=== PATIENT | female | born 1995 | race Caucasian/White ===

== ENCOUNTER 2021-01-12 20:34 | Inpatient (IN) | payer OTHER ==
[~2021-01-12] VITALS: Ht 162.6 cm; Wt 106.8 kg
[2021-01-12 21:32] LABS: MICROSCOPIC INDICATED
[2021-01-12 21:39] LABS: BASOPHILS % (AUTO) 0 % (0-1); EOSINOPHILS % (AUTO) 1 % (1-7); LYMPHOCYTES % (AUTO) 16 % (22-44); MEAN CORPUSCULAR HEMOGLOBIN 30.2 pg (27.0-34.8); MEAN CORPUSCULAR HGB CONC 32.6 g/dL (32.4-35.8); MEAN PLATELET VOLUME 9.4 fL (7.4-10.4); MONOCYTES % (AUTO) 4 % (2-9); NEUTROPHILS % (AUTO) 79 % (42-75); PLATELET COUNT 215 x10^3/uL (130-400); RED BLOOD COUNT 4.03 x10^6/uL (3.82-5.3); RED CELL DISTRIBUTION WIDTH 15.2 % (9.6-15.2)
[2021-01-12 21:43] LABS: ALANINE AMINOTRANSFERASE 20 U/L (12-78); ALBUMIN 2.4 g/dL (3.4-5.0); ANION GAP 13 mmol/L (5-15); CALCIUM 8.6 mg/dL (8.5-10.1); CHLORIDE 110 mmol/L (98-107); CREATININE 0.79 mg/dL (0.55-1.02)
[2021-01-12 21:45] LABS: ALKALINE PHOSPHATASE 226 U/L (45-117); BILIRUBIN,TOTAL 0.3 mg/dL (0.2-1.0); TOTAL PROTEIN 6.4 g/dL (6.4-8.2)
[2021-01-12 21:52] VITALS: BP 136/85
[2021-01-12 21:58] LABS: BILIRUBIN, DIRECT < 0.1 mg/dL (0.1-0.2)
[2021-01-12] MEDS ORDERED: SODIUM CITRATE/CITRIC ACID 30 ML UDC PO PRN (22:30)
[2021-01-12] MEDS ORDERED: CALCIUM CARBONATE 500 MG TAB.CHEW PO PRN (22:30)
[2021-01-12] MEDS: BUTALB/APAP/CAFFEINE 50MG/325MG/40MG PO PRN (22:50)
[2021-01-12] MEDS: INSULIN GLARGINE 100 UNITS/ML, PEN SQ-INSULIN SCH (23:01)
[2021-01-12] MEDS: BETAMETHASONE 6 MG/ML, 5ML IM SCH (23:07)
[2021-01-13] MEDS ORDERED: SERTRALINE 50MG TABLET PO ONE (00:30)
[2021-01-13] MEDS: LEVOTHYROXINE 100 MCG TABLET PO SCH (05:57)
[2021-01-13] MEDS: BUTALB/APAP/CAFFEINE 50MG/325MG/40MG PO PRN ×3 (07:34→21:44)
[2021-01-13] MEDS ORDERED: ONDANSETRON ODT 4 MG ONE (07:46)
[2021-01-13] MEDS ORDERED: DIPHENHYDRAMINE 50 MG/ML, 1ML IVPush PRN (08:00)
[2021-01-13] MEDS ORDERED: ONDANSETRON 2MG/ML, 2ML IVPush PRN (08:00)
[2021-01-13] MEDS: INSULIN LISPRO 100 UNITS/ML, PEN SQ-INSULIN SCH ×3 (08:09→18:47)
[2021-01-13 21:00] VITALS: BP 145/78
[2021-01-13] MEDS: INSULIN GLARGINE 100 UNITS/ML, PEN SQ-INSULIN SCH (21:33)
[2021-01-13] MEDS: SERTRALINE 50MG TABLET PO SCH (22:28)
[2021-01-13] MEDS: BETAMETHASONE 6 MG/ML, 5ML IM SCH (22:29)
[2021-01-14] MEDS: BUTALB/APAP/CAFFEINE 50MG/325MG/40MG PO PRN ×3 (01:46→14:05)
[2021-01-14 06:03] LABS: MEAN CORPUSCULAR HEMOGLOBIN 30.3 pg (27.0-34.8); MEAN CORPUSCULAR HGB CONC 32.9 g/dL (32.4-35.8); MEAN PLATELET VOLUME 9.6 fL (7.4-10.4); PLATELET COUNT 190 x10^3/uL (130-400); RED BLOOD COUNT 3.74 x10^6/uL (3.82-5.3); RED CELL DISTRIBUTION WIDTH 15.2 % (9.6-15.2)
[2021-01-14 06:09] LABS: ALANINE AMINOTRANSFERASE 16 U/L (12-78); ALBUMIN 2.2 g/dL (3.4-5.0); ANION GAP 11 mmol/L (5-15); CALCIUM 8.5 mg/dL (8.5-10.1); CHLORIDE 112 mmol/L (98-107); CREATININE 0.73 mg/dL (0.55-1.02)
[2021-01-14 06:11] LABS: ALKALINE PHOSPHATASE 196 U/L (45-117); BILIRUBIN,TOTAL 0.2 mg/dL (0.2-1.0); TOTAL PROTEIN 5.9 g/dL (6.4-8.2)
[2021-01-14] MEDS: INSULIN LISPRO 100 UNITS/ML, PEN SQ-INSULIN SCH ×3 (06:24→17:16)
[2021-01-14] MEDS: LEVOTHYROXINE 100 MCG TABLET PO SCH (06:25)
[2021-01-14 06:36] LABS: LYMPH#(MANUAL) 0.89 x10^3/uL (1-3.4); LYMPHS% (MANUAL) 5 % (22-44); MONOS#(MANUAL) 0.35 x10^3/uL (0.3-2.7); MONOS% (MANUAL) 2 % (2-9); SEG#(MANUAL) 15.05 x10^3/uL (1.8-6.8); SEGS% (MANUAL) 85 % (42-75)
[2021-01-14 06:37] LABS: <PLATELET ESTIMATE> ADEQUATE; <PLT MORPHOLOGY> NORMAL PLT MORPH; <RBC MORPHOLOGY> NORMAL; BAND#(MANUAL) 0.89 x10^3/uL; BANDS%(MANUAL) 5 % (0-7); METAMYELOCYTES# (MANUAL) 0.53 x10^3/uL (0-0); METAMYELOCYTES% (MANUAL) 3 % (0-1)
[2021-01-14] MEDS: ONDANSETRON 2MG/ML, 2ML IVPush PRN (07:30)
[2021-01-14] MEDS: SERTRALINE 50MG TABLET PO SCH (08:08)
[2021-01-14] MEDS ORDERED: PRENATAL VIT/IRON/FA 1 EACH TABLET PO SCH (09:00)
[2021-01-14] MEDS ORDERED: NEWBORN KIT ONE (09:24)
[2021-01-14] MEDS ORDERED: MISOPROSTOL 200 MCG TABLET ONE (09:24)
[2021-01-14] MEDS ORDERED: LIDOCAINE 1%, 20ML ONE (09:24)
[2021-01-14] MEDS ORDERED: MISOPROSTOL 25 MCG TABLET ONE (09:24)
[2021-01-14] MEDS ORDERED: MAGNESIUM SULF. PMX 20GM/500ML 500 ML IV ONE (09:25)
[2021-01-14] MEDS ORDERED: OXYTOCIN 30U/ 0.9% NaCL 500ML 500 ML ONE (09:25)
[2021-01-14] MEDS ORDERED: TERBUTALINE 1 MG/ML, 1ML IVPush PRN (10:00)
[2021-01-14] MEDS ORDERED: D5%-LACTATED RINGERS 1,000 ML IV SCH (10:00)
[2021-01-14] MEDS ORDERED: SODIUM CITRATE/CITRIC ACID 30 ML UDC PO PRN (10:00)
[2021-01-14] MEDS ORDERED: MISOPROSTOL 25 MCG TABLET VG PRN (10:00)
[2021-01-14] MEDS: LACTATED RINGERS 1,000 ML IV SCH ×2 (10:00→10:30)
[2021-01-14] MEDS ORDERED: OXYTOCIN 30U/ 0.9% NaCL 500ML 500 ML IV ONE (10:00)
[2021-01-14] MEDS ORDERED: FENTANYL PF 100 MCG/2ML IVPush PRN (10:00)
[2021-01-14] MEDS ORDERED: TERBUTALINE 1 MG/ML, 1ML SQ PRN (10:00)
[2021-01-14] MEDS ORDERED: ALUMINUM/MAG/SIMETHICONE 30 ML UDC PO PRN (10:00)
[2021-01-14] MEDS ORDERED: SODIUM CHLORIDE FLUSH 10ML SYR IVF PRN (10:00)
[2021-01-14] MEDS ORDERED: OXYTOCIN 30U/ 0.9% NaCL 500ML 500 ML IV PRN (10:00)
[2021-01-14] MEDS ORDERED: MAGNESIUM SULFATE PMX 4GM/100M 100 ML IVPB ONE (11:00)
[2021-01-14] MEDS: MAGNESIUM SULF. PMX 20GM/500ML 500 ML IV SCH ×2 (11:06→18:32)
[2021-01-14] MEDS ORDERED: ACETAMINOPHEN 500 MG TABLET ONE (20:18)
[2021-01-14] MEDS: ACETAMINOPHEN 325 MG TABLET PO PRN (20:23)
[2021-01-14] MEDS ORDERED: INSULIN LISPRO 100 UNITS/ML, PEN LOW DOSE SS SQ-INSULIN SCH (21:00)
[2021-01-14] MEDS: INSULIN GLARGINE 100 UNITS/ML, PEN SQ-INSULIN SCH (21:00)
[2021-01-15] MEDS ORDERED: DIPHENHYDRAMINE 25 MG CAPSULE ONE (00:11)
[2021-01-15] MEDS ORDERED: DIPHENHYDRAMINE 25 MG CAPSULE PO PRN (00:30)
[2021-01-15] MEDS: LEVOTHYROXINE 100 MCG TABLET PO SCH (05:51)
[2021-01-15] MEDS: ONDANSETRON 2MG/ML, 2ML IVPush PRN (07:16)
[2021-01-15 07:51] LABS: MEAN CORPUSCULAR HEMOGLOBIN 30.4 pg (27.0-34.8); MEAN CORPUSCULAR HGB CONC 32.8 g/dL (32.4-35.8); MEAN PLATELET VOLUME 9.9 fL (7.4-10.4); PLATELET COUNT 180 x10^3/uL (130-400); RED BLOOD COUNT 3.64 x10^6/uL (3.82-5.3); RED CELL DISTRIBUTION WIDTH 15.5 % (9.6-15.2)
[2021-01-15] MEDS ORDERED: NALOXONE 0.4 MG/ML, 1ML IVPush PRN (08:00)
[2021-01-15] MEDS ORDERED: FENTANYL/BUPIV./NS/PF 250 ML EPIDCONT SCH (08:00)
[2021-01-15] MEDS ORDERED: EPHEDRINE 50 MG/ML, 1ML IVPush PRN (08:00)
[2021-01-15] MEDS ORDERED: LACTATED RINGERS 1,000 ML IVBOLUS PRN (08:00)
[2021-01-15 08:10] LABS: <PLATELET ESTIMATE> ADEQUATE; <PLT MORPHOLOGY> NORMAL PLT MORPH; <RBC MORPHOLOGY> NORMAL; BAND#(MANUAL) 0.31 x10^3/uL; BANDS%(MANUAL) 2 % (0-7); LYMPH#(MANUAL) 1.86 x10^3/uL (1-3.4); LYMPHS% (MANUAL) 12 % (22-44); METAMYELOCYTES# (MANUAL) 0.16 x10^3/uL (0-0); METAMYELOCYTES% (MANUAL) 1 % (0-1); MONOS#(MANUAL) 0.47 x10^3/uL (0.3-2.7); MONOS% (MANUAL) 3 % (2-9); SEG#(MANUAL) 12.71 x10^3/uL (1.8-6.8); SEGS% (MANUAL) 82 % (42-75)
[2021-01-15] MEDS: BUTALB/APAP/CAFFEINE 50MG/325MG/40MG PO PRN ×2 (09:51→15:08)
[2021-01-15] MEDS: SERTRALINE 50MG TABLET PO SCH (10:00)
[2021-01-15] MEDS: MAGNESIUM SULF. PMX 20GM/500ML 500 ML IV SCH ×3 (15:09→22:44)
[2021-01-15] MEDS: LACTATED RINGERS 1,000 ML IV SCH ×2 (16:00→16:10)
[2021-01-15] MEDS ORDERED: BUPIVACAINE 0.25% ONE (16:25)
[2021-01-15] MEDS ORDERED: CALCIUM CARBONATE 500 MG TAB.CHEW ONE (20:50)
[2021-01-15] MEDS ORDERED: CALCIUM CARBONATE 500 MG TAB.CHEW PO PRN (21:00)
[2021-01-15] MEDS: INSULIN GLARGINE 100 UNITS/ML, PEN SQ-INSULIN SCH (21:00)
[2021-01-16] MEDS: MAGNESIUM SULF. PMX 20GM/500ML 500 ML IV SCH ×5 (03:00→23:00)
[2021-01-16] MEDS: LEVOTHYROXINE 100 MCG TABLET PO SCH (05:16)
[2021-01-16] MEDS: ONDANSETRON 2MG/ML, 2ML IVPush PRN (07:06)
[2021-01-16] MEDS ORDERED: CEFAZOLIN 2,000 MG in DEXTROSE 5% 50 ML IV SCH (10:30)
[2021-01-16] MEDS: SERTRALINE 50MG TABLET PO SCH (10:34)
[2021-01-16] MEDS: BUTALB/APAP/CAFFEINE 50MG/325MG/40MG PO PRN (10:35)
[2021-01-16] MEDS ORDERED: PROMETHAZINE 25 MG/ML, 1ML IM ONE (11:00)
[2021-01-16] MEDS ORDERED: PROMETHAZINE 25 MG/ML, 1ML ONE (11:02)
[2021-01-16] MEDS ORDERED: METOCLOPRAMIDE 5 MG/ML, 2ML ONE (18:16)
[2021-01-16] MEDS ORDERED: SODIUM CITRATE/CITRIC ACID 15 ML UDC ONE (18:16)
[2021-01-16] MEDS ORDERED: LIDOCAINE/MPF 2%-EPI 1:200K, 20 ML ONE (18:26)
[2021-01-16] MEDS ORDERED: AZITHROMYCIN 500 MG in SODIUM CHLORIDE 0.9% 250 ML IV ONE (18:30)
[2021-01-16] MEDS ORDERED: SODIUM CITRATE/CITRIC ACID 30 ML UDC PO ONE (18:30)
[2021-01-16] MEDS ORDERED: LACTATED RINGERS 1,000 ML IVBOLUS ONE (18:30)
[2021-01-16] MEDS ORDERED: METOCLOPRAMIDE 5 MG/ML, 2ML IV ONE (18:30)
[2021-01-16] MEDS ORDERED: KETOROLAC 30 MG/1 ML ONE (18:38)
[2021-01-16] MEDS ORDERED: OXYTOCIN 10 UNITS/ML, 1ML ONE (18:38)
[2021-01-16] MEDS ORDERED: DEXAMETHASONE 4 MG/ML, 1ML ONE (18:38)
[2021-01-16] MEDS ORDERED: morphine SULFATE/PF 0.5 MG/ML, 10ML ONE (18:38)
[2021-01-16] MEDS ORDERED: ONDANSETRON 2MG/ML, 2ML ONE (18:38)
[2021-01-16] MEDS ORDERED: TRANEXAMIC ACID 100 MG/ML, 10ML ONE (18:51)
[2021-01-16] MEDS: KETOROLAC 30 MG/1 ML IV SCH (19:00)
[2021-01-16] MEDS ORDERED: MORPHINE SULFATE 4 MG/ML, 1ML IVPush PRN (20:00)
[2021-01-16] MEDS ORDERED: LACTATED RINGERS 1,000 ML IV SCH (20:00)
[2021-01-16] MEDS: OXYTOCIN 30U/ 0.9% NaCL 500ML 500 ML IV SCH (20:00)
[2021-01-16] MEDS ORDERED: ONDANSETRON 2MG/ML, 2ML IV PRN (20:00)
[2021-01-16] MEDS ORDERED: SIMETHICONE 80 MG CHEW TAB PO PRN (20:00)
[2021-01-16] MEDS ORDERED: OXYcodone/APAP 5/325MG TABLET PO PRN ×2 (20:00)
[2021-01-16] MEDS ORDERED: morphine SULFATE 10 MG/ML, 1ML IM PRN (20:00)
[2021-01-16] MEDS ORDERED: MISOPROSTOL 200 MCG TABLET PR PRN (20:00)
[2021-01-16] MEDS: LACTATED RINGERS 1,000 ML IV SCH (20:00)
[2021-01-16] MEDS ORDERED: CALCIUM CARBONATE 500 MG TAB.CHEW PO PRN (20:00)
[2021-01-16 20:40] LABS: ALANINE AMINOTRANSFERASE 16 U/L (12-78); ALBUMIN 1.9 g/dL (3.4-5.0); ANION GAP 10 mmol/L (5-15); CHLORIDE 105 mmol/L (98-107); CREATININE 0.97 mg/dL (0.55-1.02)
[2021-01-16 20:41] LABS: BASOPHILS % (AUTO) 0 % (0-1); EOSINOPHILS % (AUTO) 0 % (1-7); LYMPHOCYTES % (AUTO) 7 % (22-44); MEAN CORPUSCULAR HEMOGLOBIN 30.4 pg (27.0-34.8); MEAN CORPUSCULAR HGB CONC 32.9 g/dL (32.4-35.8); MEAN PLATELET VOLUME 9.3 fL (7.4-10.4); MONOCYTES % (AUTO) 3 % (2-9); NEUTROPHILS % (AUTO) 90 % (42-75); PLATELET COUNT 167 x10^3/uL (130-400); RED BLOOD COUNT 3.68 x10^6/uL (3.82-5.3)
[2021-01-16 20:42] LABS: ALKALINE PHOSPHATASE 214 U/L (45-117); BILIRUBIN,TOTAL 0.3 mg/dL (0.2-1.0); TOTAL PROTEIN 5.6 g/dL (6.4-8.2)
[2021-01-16 22:00] VITALS: BP 151/91
[2021-01-17] MEDS: LACTATED RINGERS 1,000 ML IV SCH ×3 (04:00→20:00)
[2021-01-17] MEDS: KETOROLAC 30 MG/1 ML IV SCH ×4 (04:00→15:54)
[2021-01-17] MEDS: OXYTOCIN 30U/ 0.9% NaCL 500ML 500 ML IV SCH ×2 (06:00→16:00)
[2021-01-17 06:10] LABS: BASOPHILS % (AUTO) 0 % (0-1); EOSINOPHILS % (AUTO) 0 % (1-7); LYMPHOCYTES % (AUTO) 12 % (22-44); MEAN CORPUSCULAR HEMOGLOBIN 30.7 pg (27.0-34.8); MEAN CORPUSCULAR HGB CONC 33.7 g/dL (32.4-35.8); MEAN PLATELET VOLUME 9.5 fL (7.4-10.4); MONOCYTES % (AUTO) 4 % (2-9); NEUTROPHILS % (AUTO) 85 % (42-75); PLATELET COUNT 172 x10^3/uL (130-400); RED BLOOD COUNT 3.24 x10^6/uL (3.82-5.3); RED CELL DISTRIBUTION WIDTH 14.7 % (9.6-15.2)
[2021-01-17] MEDS: LEVOTHYROXINE 100 MCG TABLET PO SCH ×2 (08:13→08:15)
[2021-01-17] MEDS: PRENATAL VIT/IRON/FA 1 EACH TABLET PO SCH ×2 (08:13→08:15)
[2021-01-17] MEDS: SERTRALINE 50MG TABLET PO SCH (10:16)
[2021-01-17] MEDS: MAGNESIUM SULF. PMX 20GM/500ML 500 ML IV SCH (15:06)
[2021-01-17 20:30] VITALS: BP 145/90
[2021-01-17] MEDS: IBUPROFEN 600 MG TABLET PO PRN (20:56)
[2021-01-17] MEDS: DOCUSATE 100 MG CAPSULE PO PRN (20:56)
[2021-01-18] VITALS (7 sets, daily range): BP systolic 133–142; BP diastolic 85–91
[2021-01-18] MEDS: ACETAMINOPHEN 325 MG TABLET PO PRN ×4 (00:44→19:35)
[2021-01-18] MEDS: OXYTOCIN 30U/ 0.9% NaCL 500ML 500 ML IV SCH ×3 (02:00→22:00)
[2021-01-18] MEDS: IBUPROFEN 600 MG TABLET PO PRN ×3 (03:14→17:19)
[2021-01-18] MEDS: LACTATED RINGERS 1,000 ML IV SCH ×3 (04:00→20:00)
[2021-01-18] MEDS: LEVOTHYROXINE 100 MCG TABLET PO SCH (07:11)
[2021-01-18] MEDS: PRENATAL VIT/IRON/FA 1 EACH TABLET PO SCH (10:13)
[2021-01-18] MEDS: SERTRALINE 50MG TABLET PO SCH (10:13)
[2021-01-18] MEDS: DOCUSATE 100 MG CAPSULE PO PRN ×2 (10:13→19:35)
[2021-01-19] MEDS: IBUPROFEN 600 MG TABLET PO PRN ×2 (00:03→06:02)
[2021-01-19] MEDS: ACETAMINOPHEN 325 MG TABLET PO PRN ×2 (00:04→06:02)
[2021-01-19 03:25] VITALS: BP 147/82
[2021-01-19] MEDS: LACTATED RINGERS 1,000 ML IV SCH (04:00)
[2021-01-19] MEDS: LEVOTHYROXINE 100 MCG TABLET PO SCH (06:03)
[2021-01-19 08:30] VITALS: BP 118/75
[2021-01-19] MEDS: DOCUSATE 100 MG CAPSULE PO PRN (09:03)
[2021-01-19] MEDS: PRENATAL VIT/IRON/FA 1 EACH TABLET PO SCH (09:03)
[2021-01-19] MEDS: SERTRALINE 50MG TABLET PO SCH (09:03)
[2021-01-19] MEDS ORDERED: FERR324T5 PO (09:59)
[2021-01-19] MEDS ORDERED: DOCU-131 PO (09:59)
[2021-01-19] MEDS ORDERED: IBUP-1222 PO (09:59)
[2021-01-19] MEDS ORDERED: ACET650S21 PO (10:00)
== END 2021-01-19 11:40 | disposition home or self-care (01) | DRG 787 ==
LOC: LDOP 20:34 → LDIP 23:12 → OBSVTOIN 23:12 → LDIP 01-14 10:32 → 2NE 01-17 01:59 → 2NW 01-17 20:25
PROVIDERS: ADMIT Obstetrics & Gynecology; ATTEND Obstetrics & Gynecology
PROC: 10D00Z1 Extraction of Products of Conception, Low, Open Approach (ICD-10-PCS; principal; 2021-01-16)
DX: O14.14 Severe pre-eclampsia complicating childbirth (principal); E78.72 Smith-Lemli-Opitz syndrome; E71.510 Zellweger syndrome; Z20.822 Contact with and (suspected) exposure to COVID-19; O24.424 Gestational diabetes mellitus in childbirth, insulin controlled; O26.893 Other specified pregnancy related conditions, third trimester; O42.913 Preterm premature rupture of membranes, unspecified as to length of time between rupture and onset of labor, third trimester; O61.9 Failed induction of labor, unspecified; O99.284 Endocrine, nutritional and metabolic diseases complicating childbirth; O99.344 Other mental disorders complicating childbirth; F41.9 Anxiety disorder, unspecified; F32.9 Major depressive disorder, single episode, unspecified; E03.9 Hypothyroidism, unspecified; Z37.0 Single live birth; Z3A.35 35 weeks gestation of pregnancy; Z79.899 Other long term (current) drug therapy; Z82.49 Family history of ischemic heart disease and other diseases of the circulatory system
CPT/HCPCS: 36415; J7121; 80053; 81001; 82248; 82570; 82962; 83735; 84156; 84550; 85025; 86592; 86850; 86900; 87081; 87635; G0378; J0690; J0702; J1100; J1885; J2274; J2405; J2550; J1815; J2590; J2765; J3475; J7120; Q0163